=== PATIENT | female | born 1990 | race Caucasian/White ===

== ENCOUNTER 2019-01-27 10:27 | Inpatient (IN) | payer BC ==
[2019-01-27] MEDS ORDERED: Misoprostol 200 MCG TAB PR PRN (10:31)
[2019-01-27] MEDS ORDERED: Promethazine HCl 25 MG/ML VIAL IM PRN (10:31)
[2019-01-27] MEDS ORDERED: Ibuprofen 800 MG TAB PO PRN (10:31)
[2019-01-27] MEDS ORDERED: Lidocaine 1% (PF) 30 ML VIAL SC PRN (10:31)
[2019-01-27] MEDS ORDERED: Lactated Ringer's 1,000 ML IV PRN (10:31)
[2019-01-27] MEDS ORDERED: HYDROcodone/Acetaminophen 5/325 mg Tablet PO PRN ×4 (10:31→18:00)
[2019-01-27] MEDS ORDERED: NS / Oxytocin 40 units/1000ml 1,000 ML IV PRN (10:31)
[2019-01-27] MEDS ORDERED: Methylergonovine 0.2 MG/ML VIAL IM PRN ×2 (10:31→18:00)
[2019-01-27] MEDS ORDERED: Ondansetron PF 4 MG/2 ML Vial IVP PRN (10:31)
[2019-01-27] MEDS ORDERED: Lidocaine 1% (PF) 30 ML VIAL ONE (10:46)
[2019-01-27 11:31] LABS: Mean Corpuscular HGB CONC 33.1 g/dL (32.0-36.0); Mean Corpuscular Hemoglobin 30.9 pg (27.0-31.0); Mean Corpuscular Volume 93.3 fL (78.0-98.0); Mean Platelet Volume 7.7 fL (7.4-10.4); Platelet Count 264 thou/uL (130-400); RBC Distribution Width 11.9 % (11.5-14.5); Red Blood Cell (RBC) Count 4.55 mill/uL (4.20-5.40); White Blood Cell (WBC) Count 13.3 thou/uL (4.8-10.8)
[2019-01-27 11:42] VITALS: BMI 27.7
[2019-01-27 12:23] LABS: HBSAg Index 0.31 S/CO (0-0.99); Hep B Surf Ag Non-Reactive S/CO (NonReactive); Syphilis Antibody Nonreactive (Nonreactive); Syphilis Antibody Index 0.03 S/CO (<1.00 Non-Reactive)
--- NOTE | 2019-01-27 13:55 | PDOC.LDHP ---
Labor and Delivery H&P Chief complaint: other (Elective induction of labor at term) HPI: Patient was seen in the office today for routine exam. We discussed options for expectant management vs IOL by [facility]. After discussing with her , she decided to proceed with [facility] and went directly from [facility] to [facility]. She denies CTX, LOF, VB. The baby has been moving normally. Current gestational age (weeks): 40 Due date: 01/26/19 Dating criteria: last menstrual period Grav: 2 Para: 1 OB History Details: P1 precipitously. Current complications: none Current medications: pre-jerry vitamins Previous surgical history: other (Breast biopsy 2017) Allergies/Adverse Reactions: Allergies Allergy/AdvReac Type Severity Reaction Status Date / Time No Known Allergies Allergy Unverified 01/27/19 11:22 Social history: none - Physical Exam Vital signs reviewed and normal: yes General: NAD, resting Lungs: nonlabored breathing Abdomen: gravid FHT: category 1 - Vaginal Exam cm dilated: 4 Effacement: 90% Station: 0 - OB Labs Blood type: O RH: positive Antibody Screen: negative HIV: negative RPR: negative HEPSAg: negative 1 hour GCT: negative GBS: negative Urine drug screen: negative Rubella: immune - Assessment L&D Assessment: elective induction at term - Plan Plan: admit to L&D ([facility] clear fluid. Low intervention protocol)
--- NOTE | 2019-01-27 15:46 | PDOC.OPDEL ---
OB Operative/Delivery Note Delivery Dr/Surgeon: Rogerio Avila Pre-Delivery Diagnosis: elective induction Procedure/Post Delivery Dx: spontaneous vaginal delivery Weeks gestation: 40 Anesthesia: none - Findings A Sex: female - 1 min: 8 - 5 min: 9 - Additional Findings/Plan Placenta delivered: spontaneous Repaired Obstetrical Laceration: 1st degree Estimated blood loss: 250ml. See nurses documentation for QBL. Compilations/Other Findings: 1 degree repaired. Post delivery plan: routine recovery
[2019-01-27] MEDS ORDERED: Adacel (T-DAP) 0.5 ML SYRINGE IM ONE (18:00)
[2019-01-27] MEDS ORDERED: Measles/Mumps/Rubella 10 MCG/0.5 ML VIAL SC ONE (18:00)
[2019-01-27] MEDS ORDERED: Milk Of Magnesia 30 ML UDCUP PO PRN (18:00)
[2019-01-27] MEDS ORDERED: Misoprostol 200 MCG TAB VAG SCH (18:00)
[2019-01-27] MEDS ORDERED: Benzocaine-Menthol 82.5 ML CAN TOP PRN (18:00)
[2019-01-27] MEDS ORDERED: Bisacodyl 10 MG SUPP PR PRN (18:00)
[2019-01-27] MEDS ORDERED: NS / Oxytocin 40 units/1000ml 1,000 ML IV SCH (18:00)
[2019-01-27] MEDS: Ferrous Sulfate 325 MG TAB PO SCH (21:03)
[2019-01-27] MEDS: Ibuprofen 800 MG TAB PO SCH (22:03)
[2019-01-27] MEDS: Docusate Calcium (SURFAK) 240 MG CAP PO SCH (22:03)
[2019-01-28] MEDS: Ibuprofen 800 MG TAB PO SCH ×2 (04:51→14:36)
[2019-01-28] MEDS ORDERED: Prenatal Vitamin 1 TAB PO SCH (09:00)
[2019-01-28] MEDS: Ferrous Sulfate 325 MG TAB PO SCH (09:27)
[2019-01-28] MEDS: Docusate Calcium (SURFAK) 240 MG CAP PO SCH (09:28)
[2019-01-28 12:55] VITALS: BP 116/65; TEMP 98.3
== END 2019-01-28 17:50 | disposition home or self-care (01) | DRG 807 ==
LOC: L&D-LIB 10:27 → 3SW 19:50
PROVIDERS: ADMIT Obstetrics & Gynecology; ATTEND Obstetrics & Gynecology
PROC: 10E0XZZ Delivery of Products of Conception, External Approach (ICD-10-PCS; principal; 2019-01-27)
PROC: 0HQ9XZZ Repair Perineum Skin, External Approach (ICD-10-PCS; 2019-01-27)
DX: O48.0 Post-term pregnancy (principal); Z37.0 Single live birth; Z3A.40 40 weeks gestation of pregnancy; O70.0 First degree perineal laceration during delivery
CPT/HCPCS: 36415; 85027; 86780; 86850; 86900; 86901; 87340; 90707; 90715; J2001